=== PATIENT | female | born 1955 | race Caucasian/White ===

== ENCOUNTER 2018-08-03 19:22 | Emergency (ER) | payer MEDICARE ==
[2018-08-03 22:11] LABS: ABS Basophils 0.1 10^3/ul (0-0.2); ABS Eosinophils 0.1 10^3/ul (0-0.6); ABS Lymphocytes 2.1 10^3/ul (1.0-4.8); ABS Monocytes 0.4 10^3/ul (0-0.8); ABS Neutrophils 6.9 10^3/ul (1.5-7.7); Eosinophil % 1.1 %; Hematocrit 45 % (35-47); Hemoglobin 14.9 g/dL (12.0-16.0); Lymphocyte % 21.7 %; Mean Corpuscular HGB Conc 34 g/dL (31-36); Mean Corpuscular Hemoglobin 32 pg (27-31); Mean Corpuscular Volume 94 fL (80-97); Platelet Count 379 10^3/uL (150-450); Red Blood Count 4.72 10^6 /uL (3.70-4.87); Red Cell Distribution Width 14 % (10.5-15); White Blood Count 9.7 10^3/uL (3.5-10.8)
[2018-08-03 22:19] LABS: Activated Partial Thrombo Time 32.9 seconds (26.0-36.3); INR 1.16 (0.82-1.09)
[2018-08-03 22:26] LABS: Albumin/Globulin Ratio 1.1 (1-3); BUN/Creatinine Ratio 24.1 (8-20); C Reactive Protein 14.78 mg/L (<8.01); Calcium 9.8 mg/dL (8.6-10.3); EGFR African American 59.6 (>60); EGFR Non-African American 49.3 (>60); Globulin 3.8 g/dL (2-4); Potassium 3.8 mmol/L (3.5-5.0); Total Protein 7.8 g/dL (6.4-8.9)
--- NOTE | 2018-08-03 22:47 | ED ---
Lower Extremity - HPI Summary HPI Summary: 62-year-old female presents with pain behind right knee. 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 States this is similar to when she had DVT in the past. She denies any increased swelling. Denies any numbness or tingling. She states she has history of chronic knee pain. She just had a shot into the knee a couple days ago. She denies any fevers or chills. No redness to the area. she is able to ambulate with pain. has fam hx of blood clots. no chest pain or SOB. - History of Current Complaint Chief Complaint: EDExtremityLower Stated Complaint: RT LEG SWOLLEN PER PT Time Seen by Provider: 08/03/18 21:56 Pain Intensity: 8 - Allergies/Home Medications Allergies/Adverse Reactions: Allergies Allergy/AdvReac Type Severity Reaction Status Date / Time diazepam [From Valium] Allergy Unknown Verified 08/03/18 19:29 Reaction Details PMH/Surg Hx/FS Hx/Imm Hx Endocrine/Hematology History: Reports: Hx Anticoagulant Therapy Cardiovascular History: Reports: Hx Deep Vein Thrombosis, Hx Hypertension Infectious Disease History: No Infectious Disease History: Denies: Traveled Outside the [place] in Last 30 Days - Family History Known Family History: Positive: Blood Disorder - Social History Substance Use Type: Reports: None Smoking Status (MU): Unknown if Ever Smoked Review of Systems Negative: Fever Negative: Chest Pain Negative: Shortness Of Breath Positive: Myalgia - right leg pain All Other Systems Reviewed And Are Negative: Yes Physical Exam Triage Information Reviewed: Yes Vital Signs On Initial Exam: Initial Vitals Temp Pulse Resp BP Pulse Ox 98.2 F 66 16 115/68 95 08/03/18 19:24 08/03/18 19:24 08/03/18 19:24 08/03/18 19:24 08/03/18 19:24 Vital Signs Reviewed: Yes Appearance: Positive: Well-Appearing Skin: Positive: Warm, Dry Head/Face: Positive: Normal Head/Face Inspection Eyes: Positive: Normal, Conjunctiva Clear ENT: Positive: Pharynx normal Respiratory/Lung Sounds: Positive: Clear to Auscultation, Breath Sounds Present Cardiovascular: Positive: Normal, RRR Musculoskeletal: Positive: Other - tenderness side of right knee, good pulses, sensation grossly intact. Negative: Raul Sign Right, Edema Right Neurological: Positive: Normal Psychiatric: Positive: Normal Diagnostics - Vital Signs Vital Signs Temp Pulse Resp BP Pulse Ox 08/03/18 21:20 98 F 61 17 113/66 95 08/03/18 19:24 98.2 F 66 16 115/68 95 - Laboratory Lab Results: Lab Results 08/03/18 08/03/18 08/03/18 Range/Units 22:03 22:03 22:03 WBC 9.7 (3.5-10.8) 10^3/uL RBC 4.72 (3.70-4.87) 10^6 /uL Hgb 14.9 (12.0-16.0) g/dL Hct 45 (35-47) % MCV 94 (80-97) fL MCH 32 H (27-31) pg MCHC 34 (31-36) g/dL RDW 14 (10.5-15) % Plt Count 379 (150-450) 10^3/uL MPV 8.0 (7.4-10.4) fL Neut % (Auto) 71.8 % Lymph % (Auto) 21.7 % [place] % (Auto) 4.5 % Eos % (Auto) 1.1 % Baso % (Auto) 0.9 % Absolute Neuts (auto) 6.9 (1.5-7.7) 10^3/ul Absolute Lymphs (auto) 2.1 (1.0-4.8) 10^3/ul Absolute Monos (auto) 0.4 (0-0.8) 10^3/ul Absolute Eos (auto) 0.1 (0-0.6) 10^3/ul Absolute Basos (auto) 0.1 (0-0.2) 10^3/ul Absolute Nucleated RBC 0.0 10^3/ul Nucleated RBC % 0.0 INR (Anticoag Therapy) 1.16 H (0.82-1.09) APTT 32.9 (26.0-36.3) seconds Sodium 141 (135-145) mmol/L Potassium 3.8 (3.5-5.0) mmol/L Chloride 103 (101-111) mmol/L Carbon Dioxide 32 (22-32) mmol/L Anion Gap 6 (2-11) mmol/L BUN 27 H (6-24) mg/dL Creatinine 1.12 H (0.51-0.95) mg/dL Est GFR ( Amer) 59.6 (>60) Est GFR (Non-Af Amer) 49.3 (>60) BUN/Creatinine Ratio 24.1 H (8-20) Glucose 96 (70-100) mg/dL Calcium 9.8 (8.6-10.3) mg/dL Total Bilirubin 1.00 (0.2-1.0) mg/dL AST 12 L (13-39) U/L ALT 11 (7-52) U/L Alkaline Phosphatase 83 (34-104) U/L C-Reactive Protein 14.78 H (<8.01) mg/L Total Protein 7.8 (6.4-8.9) g/dL Albumin 4.0 (3.2-5.2) g/dL Globulin 3.8 (2-4) g/dL Albumin/Globulin Ratio 1.1 (1-3) Result Diagrams: 08/03/18 22:03 08/03/18 22:03 Lab Statement: Any lab studies that have been ordered have been reviewed, and results considered in the medical decision making process. - Ultrasound No standard instances Ultrasound Interpretation Completed By: Radiologist Summary of Ultrasound Findings: IMPRESSION: Nonvisualization of the peroneal veins. No documented DVT elsewhere. Re-Evaluation - Re-Evaluation First Eval Re-Evaluation Time: 22:47 Comment: patient wants to go Lower Extremity Course/Dx - Course Course Of Treatment: 62-year-old female presents with pain behind right knee. 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 States this is similar to when she had DVT in the past. She denies any increased swelling. Denies any numbness or tingling. She states she has history of chronic knee pain. She just had a shot into the knee a couple days ago. She denies any fevers or chills. No redness to the area. she is able to ambulate with pain. On exam no erythema. Full range of motion. Tenderness on the lateral aspect of right knee. No evidence of septic arthritis. Ultrasound is normal. Told to continue ice and elevation. Told follow-up with orthopedic. Patient understands and agrees with plan. - Diagnoses Differential Diagnosis/HQI/PQRI: Positive: Fracture (Closed), Septic Arthritis, Sprain Provider Diagnoses: Right leg pain Discharge - Sign-Out/Discharge Documenting (check all that apply): Patient Departure Patient Received Moderate/Deep Sedation with Procedure: No - Discharge Plan Condition: Good Disposition: HOME Patient Education Materials: Leg Pain (ED) Referrals: No Primary Care Phys,NOPCP [Primary Care Provider] - Additional Instructions: Use compression socks Ice Elevate Take Tylenol for pain every 6 hours Follow up with primary within 5 days Return to ED if develop any new or worsening symptoms - Billing Disposition and Condition Condition: GOOD Disposition: Home
[2018-08-03 23:03] VITALS: BP 119/61
== END 2018-08-03 23:02 | disposition home or self-care (01) ==
LOC: ED 19:22
DX: M79.604 Pain in right leg (principal); I10 Essential (primary) hypertension; Z88.8 Allergy status to other drugs, medicaments and biological substances; Z79.01 Long term (current) use of anticoagulants; Z86.718 Personal history of other venous thrombosis and embolism
CPT/HCPCS: 36415; 80053; 85025; 85610; 85730; 86140; 99282

== ENCOUNTER 2021-04-12 15:18 | Inpatient (IN) ==
[2021-04-12 16:33] LABS: Hematocrit 42 % (35-47); Hemoglobin 14.4 g/dL (12.0-16.0); Mean Corpuscular HGB Conc 34 g/dL (31-36); Mean Corpuscular Hemoglobin 31 pg (27-31); Mean Corpuscular Volume 90 fL (80-97); Platelet Count 255 10^3/uL (150-450); Red Cell Distribution Width 15 % (10-15); White Blood Count 8.7 10^3/uL (3.5-10.8)
[2021-04-12 16:43] LABS: Venous Bicarbonate HCO3 35.4 mmol/L (24-28)
[2021-04-12 17:04] LABS: ALT 103 U/L (7-52); AST 129 U/L (13-39); Albumin 3.4 g/dL (3.2-5.2); Albumin/Globulin Ratio 0.9 (1-3); Alkaline Phosphatase 56 U/L (35-149); Anion Gap 8 mmol/L (2-11); Blood Urea Nitrogen 14 mg/dL (6-24); C Reactive Protein 138.71 mg/L (<8.01); CO2 Carbon Dioxide 33 mmol/L (22-32); Calcium 8.3 mg/dL (8.6-10.3); Chloride 90 mmol/L (101-111); Globulin 3.7 g/dL (2-4); Glucose 130 mg/dL (70-100); Potassium 3.5 mmol/L (3.5-5.0); Sodium 131 mmol/L (135-145); Total Protein 7.1 g/dL (6.4-8.9); Troponin I 0.04 ng/mL (<0.03)
[2021-04-12] MEDS ORDERED: Iodixanol (CONTRAST) 320 MG/ML 100 ML SDV IV ONE (17:25)
[2021-04-12 18:03] LABS: ABS Lymphocytes 0.6 10^3/ul (1.0-4.8); ABS Monocytes 0.6 10^3/ul (0-0.8); ABS Neutrophils 7.4 10^3/ul (1.5-7.7); Eosinophil % 0.1 %; Giant Platelets Present; Lymphocyte % 6.6 %; Nucleated Red Blood Cells % 0.1
[2021-04-13 06:24] LABS: Hematocrit 40 % (35-47); Hemoglobin 13.6 g/dL (12.0-16.0); Mean Corpuscular HGB Conc 34 g/dL (31-36); Mean Corpuscular Hemoglobin 31 pg (27-31); Mean Corpuscular Volume 89 fL (80-97); Mean Platelet Volume 8.3 fL (7.4-10.4); Platelet Count 276 10^3/uL (150-450); Red Blood Count 4.44 10^6 /uL (3.70-4.87); Red Cell Distribution Width 15 % (10-15)
[2021-04-13 06:27] LABS: ABS Lymphocytes 0.4 10^3/ul (1.0-4.8); ABS Monocytes 0.3 10^3/ul (0-0.8); ABS Neutrophils 2.2 10^3/ul (1.5-7.7); Lymphocyte % 14.6 %; Nucleated Red Blood Cells % 0.4
[2021-04-13 06:46] LABS: ALT 90 U/L (7-52); AST 106 U/L (13-39); Albumin 3.4 g/dL (3.2-5.2); Alkaline Phosphatase 58 U/L (35-149); Anion Gap 7 mmol/L (2-11); Blood Urea Nitrogen 17 mg/dL (6-24); CO2 Carbon Dioxide 35 mmol/L (22-32); Calcium 8.1 mg/dL (8.6-10.3); Chloride 89 mmol/L (101-111); Globulin 3.4 g/dL (2-4); Glucose 159 mg/dL (70-100); Potassium 3.6 mmol/L (3.5-5.0); Sodium 131 mmol/L (135-145); Total Protein 6.8 g/dL (6.4-8.9); eGFR CKD-EPI 54.6 (>60)
[2021-04-13 09:43] LABS: Troponin I 0.03 ng/mL (<0.03)
[2021-04-13] MEDS ORDERED: oxyCODONE/Acetamin 10/325(NF) TAB PO PRN ×2 (20:23→20:25)
[2021-04-13] MEDS: oxyCODONE/Acetamin 5/325 mg TAB PO PRN (22:14)
[2021-04-14 06:43] LABS: Hematocrit 40 % (35-47); Hemoglobin 13.9 g/dL (12.0-16.0); Mean Corpuscular HGB Conc 35 g/dL (31-36); Mean Corpuscular Hemoglobin 31 pg (27-31); Mean Corpuscular Volume 90 fL (80-97); Mean Platelet Volume 8.2 fL (7.4-10.4); Platelet Count 331 10^3/uL (150-450); Red Blood Count 4.46 10^6 /uL (3.70-4.87); Red Cell Distribution Width 15 % (10-15); White Blood Count 5.5 10^3/uL (3.5-10.8)
[2021-04-14 06:44] LABS: ABS Monocytes 0.9 10^3/ul (0-0.8); ABS Neutrophils 3.6 10^3/ul (1.5-7.7); Lymphocyte % 18.4 %
[2021-04-14 07:09] LABS: Albumin 3.4 g/dL (3.2-5.2); Calcium 8.6 mg/dL (8.6-10.3); Globulin 3.5 g/dL (2-4); Magnesium 2.5 mg/dL (1.9-2.7); Potassium 3.9 mmol/L (3.5-5.0); Total Bilirubin 0.7 mg/dL (0.2-1.0); Total Protein 6.9 g/dL (6.4-8.9); eGFR CKD-EPI 45.2 (>60)
[2021-04-14] MEDS ORDERED: Remdesivir 100 mg Vial 200 MG in NS 0.9% 250 ml 210 ML IV ONE (11:53)
[2021-04-14] MEDS: oxyCODONE/Acetamin 5/325 mg TAB PO PRN ×2 (11:57→20:50)
[2021-04-14] MEDS ORDERED: Remdesivir 100 mg Vial 100 MG in NS 0.9% 250 ml 230 ML IV SCH (12:00)
[2021-04-14 12:25] LABS: INR 1.44 (0.86-1.15)
[2021-04-14 12:36] LABS: Albumin 3.4 g/dL (3.2-5.2); Albumin/Globulin Ratio 0.9 (1-3); Calcium 8.8 mg/dL (8.6-10.3); Globulin 3.7 g/dL (2-4); Potassium 3.8 mmol/L (3.5-5.0); Total Bilirubin 0.8 mg/dL (0.2-1.0); Total Protein 7.1 g/dL (6.4-8.9); eGFR CKD-EPI 49.7 (>60)
[2021-04-14 12:59] LABS: Urine Appearance Clear; Urine Bilirubin Negative (Negative); Urine Blood 1+ (Negative); Urine Color Yellow; Urine Glucose Negative (Negative); Urine Ketones Negative (Negative); Urine Nitrite Negative (Negative); Urine Protein Negative (Negative); Urine Specific Gravity 1.009 (1.002-1.030); Urine Urobilinogen Negative (Negative)
[2021-04-14 13:08] LABS: Urine Bacteria 1+ (Absent); Urine Red Blood Cell Trace(0-2/hpf) (Absent); Urine Squamous Epithelial Cell Present (Absent); Urine White Blood Cell Trace(0-5/hpf) (Absent)
[2021-04-15] MEDS: oxyCODONE/Acetamin 5/325 mg TAB PO PRN ×3 (02:50→20:47)
[2021-04-15] MEDS: Remdesivir 100 mg Vial 100 MG in NS 0.9% 250 ml 230 ML IV SCH (08:16)
[2021-04-15 08:31] LABS: Hematocrit 41 % (35-47); Hemoglobin 13.5 g/dL (12.0-16.0); Mean Corpuscular HGB Conc 33 g/dL (31-36); Mean Corpuscular Hemoglobin 30 pg (27-31); Mean Corpuscular Volume 90 fL (80-97); Platelet Count 375 10^3/uL (150-450); Red Blood Count 4.52 10^6 /uL (3.70-4.87); Red Cell Distribution Width 15 % (10-15); White Blood Count 7.3 10^3/uL (3.5-10.8)
[2021-04-15 08:42] LABS: INR 1.19 (0.86-1.15)
[2021-04-15 08:51] LABS: Albumin 3.3 g/dL (3.2-5.2); Calcium 8.6 mg/dL (8.6-10.3); Globulin 3.2 g/dL (2-4); Magnesium 2.4 mg/dL (1.9-2.7); Potassium 4.1 mmol/L (3.5-5.0); Total Bilirubin 0.6 mg/dL (0.2-1.0); Total Protein 6.5 g/dL (6.4-8.9); eGFR CKD-EPI 56.4 (>60)
[2021-04-15 09:44] LABS: ABS Lymphocytes 1.8 10^3/ul (1.0-4.8); ABS Monocytes 0.8 10^3/ul (0-0.8); ABS Neutrophils 4.8 10^3/ul (1.5-7.7); Lymphocyte % 24.3 %
[2021-04-15] MEDS: Nystatin TOP POWDER 15 GM BTL TOPICAL SCH ×2 (10:02→21:18)
[2021-04-15] MEDS: Pantoprazole VIAL 40 MG VIAL IV SCH (13:20)
[2021-04-16 04:53] LABS: Hematocrit 40 % (35-47); Hemoglobin 13.3 g/dL (12.0-16.0); Mean Corpuscular HGB Conc 33 g/dL (31-36); Mean Corpuscular Hemoglobin 30 pg (27-31); Mean Corpuscular Volume 92 fL (80-97); Mean Platelet Volume 7.9 fL (7.4-10.4); Platelet Count 394 10^3/uL (150-450); Red Blood Count 4.41 10^6 /uL (3.70-4.87); Red Cell Distribution Width 15 % (10-15); White Blood Count 7.2 10^3/uL (3.5-10.8)
[2021-04-16 04:56] LABS: ABS Lymphocytes 1.5 10^3/ul (1.0-4.8); ABS Monocytes 0.7 10^3/ul (0-0.8); ABS Neutrophils 4.9 10^3/ul (1.5-7.7); Lymphocyte % 21.6 %
[2021-04-16 05:02] LABS: INR 1.26 (0.86-1.15)
[2021-04-16 05:09] LABS: Albumin 3.2 g/dL (3.2-5.2); Calcium 8.5 mg/dL (8.6-10.3); Globulin 3.1 g/dL (2-4); Magnesium 2.2 mg/dL (1.9-2.7); Potassium 4.5 mmol/L (3.5-5.0); Total Bilirubin 0.5 mg/dL (0.2-1.0); Total Protein 6.3 g/dL (6.4-8.9); eGFR CKD-EPI 52.9 (>60)
[2021-04-16] MEDS: oxyCODONE/Acetamin 5/325 mg TAB PO PRN ×3 (05:18→19:30)
[2021-04-16] MEDS: Remdesivir 100 mg Vial 100 MG in NS 0.9% 250 ml 230 ML IV SCH (10:15)
[2021-04-16] MEDS: Pantoprazole VIAL 40 MG VIAL IV SCH (10:15)
[2021-04-16] MEDS: Nystatin TOP POWDER 15 GM BTL TOPICAL SCH ×2 (10:17→19:31)
[2021-04-16] MEDS ORDERED: Polyethylene Glycol 3350 17 GM PACKET PO PRN (13:54)
[2021-04-16] MEDS: Senna TAB 8.6 mg TAB PO PRN (16:06)
[2021-04-17] MEDS: oxyCODONE/Acetamin 5/325 mg TAB PO PRN ×3 (04:43→20:38)
[2021-04-17 06:19] LABS: INR 1.25 (0.86-1.15)
[2021-04-17 06:38] LABS: Albumin 3.1 g/dL (3.2-5.2); Albumin/Globulin Ratio 0.9 (1-3); Calcium 8.4 mg/dL (8.6-10.3); Globulin 3.4 g/dL (2-4); Potassium 4.7 mmol/L (3.5-5.0); Total Bilirubin 0.6 mg/dL (0.2-1.0); Total Protein 6.5 g/dL (6.4-8.9); eGFR CKD-EPI 53.4 (>60)
[2021-04-17] MEDS: Senna TAB 8.6 mg TAB PO PRN (09:49)
[2021-04-17] MEDS: Nystatin TOP POWDER 15 GM BTL TOPICAL SCH ×2 (10:04→20:39)
[2021-04-18] MEDS: oxyCODONE/Acetamin 5/325 mg TAB PO PRN ×2 (03:32→09:08)
[2021-04-18 07:35] VITALS: BP 150/77
[2021-04-18 08:45] LABS: Albumin 3.3 g/dL (3.2-5.2); Calcium 8.7 mg/dL (8.6-10.3); Globulin 3.3 g/dL (2-4); Total Bilirubin 0.7 mg/dL (0.2-1.0); Total Protein 6.6 g/dL (6.4-8.9); eGFR CKD-EPI 55.8 (>60)
[2021-04-18 08:46] LABS: INR 1.24 (0.86-1.15)
[2021-04-18] MEDS: Nystatin TOP POWDER 15 GM BTL TOPICAL SCH (09:09)
== END 2021-04-18 11:25 | disposition home or self-care (01) | DRG 177 ==
LOC: ED 15:18 → SUATTDRO 20:08 → EDHOLD 20:08 → MED 21:34
PROVIDERS: ADMIT Internal Medicine; ATTEND Internal Medicine